=== PATIENT | female | born 1995 | race Caucasian/White ===

== ENCOUNTER 2017-04-14 13:30 | Outpatient (CLI) | payer MEDICAID, SELFPAY ==
[2017-04-14 13:47] VITALS: BMI 21.9
[2017-04-14] MEDS: Lactated Ringers 1,000 ML 999 ML IV (13:50)
[2017-04-14] MEDS: Betamethasone/Betamethasone 30 MG/5 ML Vial 12 MG IM (13:53)
[2017-04-14 14:02] LABS: Bacteria 0 SEEN /hpf (None Seen); Mucous, Urine 0 SEEN /hpf (<or=2+); Red Blood Cells-Urine 0 SEEN /hpf (0-5)
[2017-04-14 14:06] LABS: Absolute Lymphocyte Count 1.35 X10^3/ul (0.83-4.51); Absolute Neutrophil Count 6.3 X10^3/uL (2.0-7.7); Basophil# 0.01 X10^3/uL; Basophil% 0.1 % (0-1); Eosinophil# 0.04 X10^3/uL; Eosinophils% 0.5 % (0-5); Hematocrit 34.6 % (37-47); Hemoglobin 11.1 g/dl (12.0-15.0); Lymphocyte # 1.35 X10^3/ul (4.0); Lymphocyte % 16.1 % (19-41); Mean Corp Hgb Conc 32.1 g/gl (32-36); Mean Corpuscular Hgb 28.2 pg (27.0-32.0); Mean Platelet Vol. 11.3 fl (6.2-12.0); Monocyte# 0.62 X10^3/uL; Monocyte% 7.4 % (0-10); Neutrophil # 6.33 X10^3/uL (2.7-7.7); Neutrophil % 75.8 % (47-70); Platelet Count 187 K/mm3 (150-450); RBC Distribution Width CV 12.7 % (11.6-14.6); RBC Distribution Width SD 41.2 fl (35.1-43.9); Red Blood Count 3.93 M/mm3 (4.2-5.4); White Blood Count 8.4 K/mm3 (4.4-11.0)
[2017-04-14 14:07] LABS: POSITIVE COUNT NO; POSITIVE DIFFERENTIAL NO; POSITIVE MORPHOLOGY NO
[2017-04-14 14:24] LABS: Color, Urine Yellow (Yellow); Glucose, Dipstick Normal (Normal); Ketone-Dipstick Negative (Negative); Leukocyte Esterase-Dipstick 25 /ul (Negative); Nitrite-Dipstick Negative (Negative); Occult Blood-Urine Negative /ul (Negative); Protein-Dipstick Negative (Negative); Urine Bilirubin Dipstick Negative (Negative); Urine Clarity Sl. Cloudy (Clear); Urine Urobilinogen Normal (Normal)
[2017-04-14 14:34] LABS: Squamous Epithelial Cells - UA 0-5 SEEN /hpf (5-10); White Blood Cells 0-5 SEEN /hpf (0-5)
[2017-04-14 14:47] LABS: Group B Strep DNA By PCR POSITIVE (Negative); Probe Check PASS
[2017-04-14] MEDS: Lactated Ringers 1,000 ML 150 ML IV (14:52)
--- NOTE | 2017-04-14 19:09 | PCM.HP.OB ---
History Date of Admission: 04/14/17 Gestational age: 35 History of this : 21-year-old 3 para 1011 female who presents at 35-5/7 weeks gestation with EDC of 05/14/2017 by last menstrual period confirmed by first trimester ultrasound who presents complaining of contractions. She has been rachel since yesterday but they got worse this morning. She arrived to labor and delivery to be evaluated for this. She denies any gross vaginal bleeding or leaking of fluid she has had good movement. She denies any nausea vomiting, fevers, chills, constipation, or diarrhea. She denies any dysuria. Had some increased pelvic pressure. Pertinent Past Medical History: Past medical history significant for mood disorder, ovarian cyst, anemia of Social history patient is currently in the process of getting Surgical history appendectomy Allergies No Known Allergies Allergy (Verified 04/14/17 15:33) Current Medications Lactated Ringer's () 1,000 mls @ 150 mls/hr IV .[id number] ELIAS Last Admin: 04/14/17 14:52 Dose: 150 mls/hr Smoking Status: Former smoker Alcohol: None Drug Use: none Number of Fetus(es): 1 Review of Systems Constitutional: Denies: Chills, Fever Cardiovascular: Denies: Chest Pain Respiratory: Denies: Cough Gastrointestinal: Denies: Constipation, Diarrhea Genitourinary: Denies: Dysuria, Frequency Physical Exam General: Alert, Cooperative, No apparent distress Cardiovascular: Regular rate Lungs: Normal air movement Abdomen: Soft, Non Tender, Non-Distended, Gravid Extremities:: No edema Estimated gestational size: Appropriate for gestational size Presentation: Cephalic Cervix Dilation (cm): 3.5 - soft, mid position Station: -2 Effacement (%): 70 Assessment/Plan 21-year-old 3 para 1 female at 35-5/7 weeks 1. labor. Patient was given betamethasone in anticipation of delivery. Rapid group B strep was done and is positive. Patient is now 4 and 80-2 station. With the cervical change will initiate group B strep prophylaxis at this time. Nan with her I am not making her a full admission for labor until she declares herself in active labor. She is rachel regularly and heart tones are category 1. If she is determined to be in active labor she may have an epidural or nitrous oxide as desired. Estimated weight is less than 4000 g and pelvis clinically adequate to expect vaginal delivery. I did offer patient some Nubain and we have given her IV fluids and she declines the Nubain at this time for pain control. IV hydration has not increased her contraction frequency and she feels like they are getting more intense. We will continue to monitor until she is declared to be in labor or false labor.
--- NOTE | 2017-04-14 20:58 | PCM.PN.BLA ---
Progress Note Patient's contractions of stated regular but not gotten more intense over the past couple of hours. Her cervix remains unchanged. heart tones are category 1. At this point I discussed with her that at 35 weeks unless she declares herself in active labor we would not form any augmentation of labor. Patient is comfortable with this. Will saline lock IV for tonight. May monitor 1 hour every shift and as needed. Second dose of betamethasone tomorrow. Reinitiate penicillin prophylaxis and admit for labor if significant cervical change tonight. Patient agrees with plan
[2017-04-15] MEDS: Sertraline 50 MG Tablet PO (03:51)
[2017-04-15] MEDS: Betamethasone/Betamethasone 30 MG/5 ML Vial 12 MG IM (11:58)
--- NOTE | 2017-04-15 13:30 | PCM.PN.OB ---
Subjective: Contractions less intense. Some blood tinged mucous. Less of the sharp suprapubic pains. No LoF. no n/v/d/c. No dysuria. Comfortable going home - Physical Exam General: Alert, Cooperative, No apparent distress Lungs: Normal air movement Abdomen: Soft, Non Tender, Non-Distended Extremities: No edema Skin: No rashes Comment: cervix 4/75/-2, ballots, mid position, firm Weight: 52.2 kg Body Mass Index (BMI) 21.9 Laboratory Tests Past 24 Hrs 04/14/17 04/14/17 04/14/17 13:50 13:50 13:55 WBC 8.4 RBC 3.93 L Hgb 11.1 L Hct 34.6 L MCV 88.0 MCH 28.2 MCHC 32.1 RDW 12.7 RDW Differential 41.2 Plt Count 187 MPV 11.3 Immature Gran % (Auto) 0.100 Neut % (Auto) 75.8 H Lymph % (Auto) 16.1 L [place] % (Auto) 7.4 Eos % (Auto) 0.5 Baso % (Auto) 0.1 Absolute Neuts (auto) 6.3 Absolute Lymphs (auto) 1.35 Total Counted Not Reportable Urine Color Yellow Urine Clarity Sl. Cloudy Urine pH 8.0 Ur Specific [place] 1.010 Urine Protein Negative Urine Glucose (UA) Normal Urine Ketones Negative Urine Occult Blood Negative Urine Nitrite Negative Urine Bilirubin Negative Urine Urobilinogen Normal Ur Leukocyte Esterase 25 H Urine RBC 0 SEEN Urine WBC 0-5 SEEN Ur Squamous Epith Cells 0-5 SEEN Urine Bacteria 0 SEEN Urine Mucus 0 SEEN Group B Strep DNA Specimen Comment Blood Type O POSITIVE Antibody Screen NEGATIVE 04/14/17 13:55 WBC RBC Hgb Hct MCV MCH MCHC RDW RDW Differential Plt Count MPV Immature Gran % (Auto) Neut % (Auto) Lymph % (Auto) [place] % (Auto) Eos % (Auto) Baso % (Auto) Absolute Neuts (auto) Absolute Lymphs (auto) Total Counted Urine Color Urine Clarity Urine pH Ur Specific [place] Urine Protein Urine Glucose (UA) Urine Ketones Urine Occult Blood Urine Nitrite Urine Bilirubin Urine Urobilinogen Ur Leukocyte Esterase Urine RBC Urine WBC Ur Squamous Epith Cells Urine Bacteria Urine Mucus Group B Strep DNA POSITIVE H Specimen Comment Not Reportable Blood Type Antibody Screen Assessment/Plan FHTs baseline -normal variability- moderate accels- present decels- none reactive- yes, category1 tocos- irreg ctxs a/p 21 YOF @ 35 6/7 weeks w/ threatened ptl s/p betamethasone x 2 d/w her PTL precautions f/u in 2 days as scheduled GBS + will prophylax in labor
--- NOTE | 2017-04-28 15:56 | NURSING ---
LAKE charted on for the purpose of charging
== END 2017-04-15 13:25 | disposition home or self-care (01) ==
LOC: WPOUT 13:42 → WP 13:44
PROVIDERS: Family Provider Family Medicine; PCP Family Medicine; Visit Provider Obstetrics & Gynecology
DX: O47.03 False labor before 37 completed weeks of gestation, third trimester (principal); O99.820 Streptococcus B carrier state complicating pregnancy; O99.343 Other mental disorders complicating pregnancy, third trimester; F39 Unspecified mood [affective] disorder; O34.83 Maternal care for other abnormalities of pelvic organs, third trimester; N83.209 Unspecified ovarian cyst, unspecified side; O99.013 Anemia complicating pregnancy, third trimester; D64.9 Anemia, unspecified; Z3A.35 35 weeks gestation of pregnancy; Z90.89 Acquired absence of other organs; Z87.891 Personal history of nicotine dependence
CPT/HCPCS: 96361 ×7; 96365; 36415; 59025; 59050; 81001; 85025; 86850; 86900; 87653; 96372; 99218; J7120; G0378; J0702

== ENCOUNTER 2017-04-28 09:00 | Outpatient (CLI) | payer MEDICAID, SELFPAY ==
[2017-04-28 09:52] VITALS: BMI 22.5
--- NOTE | 2017-04-28 13:17 | OB.TRI.NOTE ---
History of Present Illness Reason For Visit: SAMANTHA Date of Service: 04/28/17 Gestational age: 37 Home Medications Medication Instructions Recorded Pnv95/Ferrous Fumarate/FA 1 tab PO DAILY 06/30/16 [ Formula Tablet] Sertraline HCl [Zoloft] 50 mg PO DAILY 01/04/17 Allergies No Known Allergies Allergy (Verified 04/14/17 15:33) NST - FHR Rate Baby A Baseline: 150 bpm Variability:: Moderate Accelerations:: 15 x 15 Decelerations:: None NST Reactive:: Yes FHR Category:: Category I Uterine Activity:: irreg ctxs Impression/Plan 21 YOF high risk multigravida false labor
== END 2017-04-28 12:10 | disposition home or self-care (01) ==
LOC: WPOUT 09:17 → WP 09:28
PROVIDERS: Family Provider Family Medicine; PCP Family Medicine; Visit Provider Obstetrics & Gynecology
DX: O09.93 Supervision of high risk pregnancy, unspecified, third trimester (principal); O47.1 False labor at or after 37 completed weeks of gestation; Z3A.37 37 weeks gestation of pregnancy
CPT/HCPCS: 59025; 59050; 99218; G0378

== ENCOUNTER 2017-05-01 20:52 | Inpatient (IN) | payer MEDICAID, SELFPAY ==
[2017-05-01 21:16] VITALS: BMI 22.6
--- NOTE | 2017-05-01 21:22 | PCM.HP.OB ---
History Date of Admission: 05/01/17 Gestational age: 38 History of this : 21-year-old 3 para 1011 female who presents at 38 2/7 weeks gestation with EDC of 05/14/2017 by last menstrual period confirmed by first trimester ultrasound presents complaining of contractions. Retractions began getting intense at 8 PM but they got significantly worse in the car on her way here. She was rushed down from emergency room and found to be completely dilated when she arrived to the floor. She had no gross vaginal bleeding or leaking of fluid at home. She had spontaneous rupture of membranes for moderate amount of fluid upon within 2 minutes of arriving to our floor. Her was complicated today by 3 threatened labor and she did receive a course of betamethasone at 35 weeks. However she is now term. Obstetrical history: one full-term vaginal delivery and 1 spontaneous miscarriage. Past medical history: Anemia of and anxiety and depression, situational stress Past surgical history:appendectomy Family medical history: Noncontributory Allergies No Known Allergies Allergy (Verified 04/14/17 15:33) Current Medications Acetaminophen (Tylenol) 325 - 650 mg PO Q4H PRN PRN PRN Reason: PAIN OR FEVER >100.4F Al Hydroxide/Mg Hydroxide (Mylanta Ii) 15 - 30 ml PO Q4H PRN PRN PRN Reason: INDIGESTION Citric Acid/Sodium Citrate (Bicitra) 30 ml PO UD PRN Lactated Ringer's () 1,000 mls @ 50 mls/hr IV .Q20H ELIAS Nalbuphine HCl (Nubain) 5 - 10 mg IV Q3H PRN PRN PRN Reason: PAIN (4-10/10) Ondansetron HCl (Zofran) 4 mg IV Q8H PRN PRN PRN Reason: NAUSEA Promethazine HCl (Phenergan (Ll)) 6.25 - 12.5 mg IV Q4H PRN PRN; Protocol PRN Reason: IF NAUSEA PERSISTS Sodium Chloride () 5 - 15 ml IV UD [facility] Smoking Status: Former smoker - quit 2014 Alcohol: None Drug Use: none Number of Fetus(es): 1 Review of Systems Constitutional: Denies: Chills, Fever Cardiovascular: Denies: Chest Pain Respiratory: Denies: Shortness of Breath Physical Exam General: Alert, - - very uncomfortable upon arrival to floor, writhing in pain, c/o pressure Cardiovascular: Regular rate Abdomen: Soft, Non-Distended, Gravid, Appropriate for Gestational Age Extremities:: No edema Estimated gestational size: Appropriate for gestational size Presentation: Cephalic Cervix Dilation (cm): 10 Station: 1 Effacement (%): 100 Assessment/Plan 21-year-old 3 para 1 female at 38 weeks gestation with precipitous labor. Patient arrived in active labor and complete. Estimated weight is less than 4500 g and pelvis clinically adequate to expect vaginal delivery. There is not time for an epidural. Patient delivered precipitously and was given IM Pitocin after delivery. No labs were sent as her bleeding was minimal during delivery and after. However if her bleeding picks up at all we will send a type and screen and started an IV.
--- NOTE | 2017-05-01 21:29 | PCM.OB.VAG ---
Vaginal Delivery Maternal Presentation: Active Labor Amniotic Membrane Rupture Type: Spontaneous Amniotic Fluid Description: Clear Final IRENE: 05/14/17 Gestational age: 38 Weeks and 1 Days Date of Procedure: 05/01/17 Pre-Operative Diagnosis: labor Post-Operative Diagnosis: same Surgery/ Procedure Performed: Spontaneous Vaginal Delivery Type of Anesthesia: None Description of Procedure: The patient arrived in active labor and complete. She was transferred to the bed on the next contraction she had spontaneous rupture of membranes for a moderate amount of clear fluid. On the next contraction she felt the urge to push and precipitously delivered. I was present on the unit and so I was present for delivery. A vigorous male infant was delivered [CLEVE] over first-degree perineal laceration. The remainder the infant was delivered with maternal pushing and gentle traction only in less than 15 seconds. The Pitocin infusion was initiated for active management of the third stage. The cord was clamped and cut [after 1 minute]. The infant was attended to by the waiting nursing staff. The placenta was delivered spontaneously and intact. The cervix and vagina were intact. Sponge and needle counts were correct. A vaginal sweep was completed by me. The laceration was not repaired and was hemostatic. Presentation: CLEVE Placental Delivery Description: Spontaneous Placenta Disposition: [facility] Cord Vessel Description: 3 Vessels Cord Entanglement: None Drain: - - none Estimated Blood Loss: 200 Infant A gender: Male Episiotomy Description: None Laceration: 1st degree - perineal Medications given after delivery: - - IM pitocin Complications: None
--- NOTE | 2017-05-01 21:33 | OP.PCM_ITS ---
Vaginal Delivery Maternal Presentation: Active Labor Amniotic Membrane Rupture Type: Spontaneous Amniotic Fluid Description: Clear Final IRENE: 05/14/17 Gestational age: 38 Weeks and 1 Days Date of Procedure: 05/01/17 Pre-Operative Diagnosis: labor Post-Operative Diagnosis: same Surgery/ Procedure Performed: Spontaneous Vaginal Delivery Type of Anesthesia: None Description of Procedure: The patient arrived in active labor and complete. She was transferred to the bed on the next contraction she had spontaneous rupture of membranes for a moderate amount of clear fluid. On the next contraction she felt the urge to push and precipitously delivered. I was present on the unit and so I was present for delivery. A vigorous male infant was delivered [CLEVE] over first- degree perineal laceration. The remainder the was delivered with maternal pushing and gentle traction only in less than 15 seconds. The Pitocin infusion was initiated for active management of the third stage. The cord was clamped and cut [after 1 minute]. The infant was attended to by the waiting nursing staff. The placenta was delivered spontaneously and intact. The cervix and vagina were intact. Sponge and needle counts were correct. A vaginal sweep was completed by me. The laceration was not repaired and was hemostatic. Presentation: CLEVE Placental Delivery Description: Spontaneous Placenta Disposition: [facility] Cord Vessel Description: 3 Vessels Cord Entanglement: None Drain: - - none Estimated Blood Loss: 200 Infant A gender: Male Episiotomy Description: None Laceration: 1st degree - perineal Medications given after delivery: - - IM pitocin Complications: None
[2017-05-02] MEDS: Etonogestrel 68 MG IMPLANT SQ (00:52)
--- NOTE | 2017-05-02 00:52 | PCM.PN.BLA ---
Progress Note Procedure report: Response and alternatives to insertion of Nexplanon were discussed with the patient, her questions were answered to her satisfaction, and she desired to proceed. A timeout was performed at 00:51. the patient's right arm was prepped with ChloraPrep. Percent lidocaine was used to infiltrate her prior scar in the lower portion of her right inferior inner arm. Nexplanon was placed under the skin in the usual sterile fashion without complication. Some pressure was held on the insertion site. The Nexplanon was palpable under the skin. Steri-Strips were placed over the insertion site and the site was wrapped with Coban. Patient tolerated the procedure well.
[2017-05-02 04:30] VITALS: BP 118/68; PULSE 82; RESP 16; TEMP 36.8
[2017-05-02 08:17] VITALS: BP 109/64; PULSE 82; RESP 16; TEMP 36.8; O2SAT 99
--- NOTE | 2017-05-02 09:35 | PCM.PN.OB ---
Subjective: No complaints - Physical Exam General: Alert, Oriented x3 Abdomen: Soft, Non Tender, Non-Distended - ff mid & below umb Extremities: No Calf Tenderness Vital Signs Temp Pulse Resp BP Pulse Ox 98.2 F 82 16 109/64 99 05/02/17 08:17 18 08:17 05/02/17 08:17 05/02/17 08:17 05/02/17 08:17 Oxygen Delivery Method Room Air Weight: 116 lb Body Mass Index (BMI) 22.6 Assessment/Plan PPD#1 Routine care
--- NOTE | 2017-05-02 09:38 | PCM.DCVAG ---
Discharge Diet: No Restrictions Discharge Activity: May Drive, May Shower May resume sexual activity in: 6 weeks Weight Bearing Status: Weight bearing as tolerated Additional Instructions: If you experience any of the following, contact your healthcare provider. Bleeding that soaks a pad every hour for 2 hours Fever 100.4 or higher Unrelieved incision or abdominal pain Swelling, redness, discharge or bleeding from your incision or episiotomy site Your incision begins to separate Problems urinating (including inability to urinate or burning while urinating). Visual changes Severe headache Flu-like symptoms Pain or redness in one of both of your breasts Pain, warmth, tenderness or swelling in your legs, especially the calf area Frequent nausea and vomiting Symptoms of depression or anxiety If you experience any of the following, call 911 or go to the nearest Emergency Room. Chest pain Problems breathing Seizure activity Partial or complete paralysis of a body part, slurred speech, weakness or drooping of the face, or a sudden inability to walk or hold your balance Allergies/Adverse Reactions: Allergies No Known Allergies Allergy (Verified 04/14/17 15:33) Medications to take at Discharge Pnv95/Ferrous Fumarate/FA [ Formula Tablet] 1 tab PO DAILY 06/30/16 Naproxen [Naprosyn] 250 - 500 mg PO Q8H PRN PRN #40 tab 05/02/17 Sertraline HCl [Zoloft] 50 mg PO DAILY tablet 05/02/17 The following prescriptions were given: Naproxen [Naprosyn] 250 - 500 mg PO Q8H PRN PRN #40 tab PRN Reason: Mild Pain (-06/06) Primary Care Physician: Yoni Le MD [Primary Care Provider] -
--- NOTE | 2017-05-02 09:39 | DCINST_ITS ---
Discharge Diet: No Restrictions Discharge Activity: May Drive, May Shower May resume sexual activity in: 6 weeks Weight Bearing Status: Weight bearing as tolerated Additional Instructions: If you experience any of the following, contact your healthcare provider. * Bleeding that soaks a pad every hour for 2 hours * Fever 100.4 or higher * Unrelieved incision or abdominal pain * Swelling, redness, discharge or bleeding from your incision or episiotomy site * Your incision begins to separate * Problems urinating (including inability to urinate or burning while urinating) . * Visual changes * Severe headache * Flu-like symptoms * Pain or redness in one of both of your breasts * Pain, warmth, tenderness or swelling in your legs, especially the calf area * Frequent nausea and vomiting * Symptoms of depression or anxiety If you experience any of the following, call 911 or go to the nearest Emergency Room. * Chest pain * Problems breathing * Seizure activity * Partial or complete paralysis of a body part, slurred speech, weakness or drooping of the face, or a sudden inability to walk or hold your balance Allergies/Adverse Reactions: Allergies No Known Allergies Allergy (Verified 04/14/17 15:33) Medications to take at Discharge Pnv95/Ferrous Fumarate/FA [ Formula Tablet] 1 tab PO DAILY 06/30/16 Naproxen [Naprosyn] 250 - 500 mg PO Q8H PRN PRN #40 tab 05/02/17 Sertraline HCl [Zoloft] 50 mg PO DAILY tablet 05/02/17 The following prescriptions were given: Naproxen [Naprosyn] 250 - 500 mg PO Q8H PRN PRN #40 tab PRN Reason: Mild Pain (-06/06) Primary Care Physician: Yoni Le MD [Primary Care Provider] -
[2017-05-02 12:00] VITALS: BP 108/75; PULSE 71; RESP 18; TEMP 36; O2SAT 98
[2017-05-02 16:39] VITALS: BP 110/73; PULSE 80; RESP 18; TEMP 36.9; O2SAT 99
--- NOTE | 2017-05-02 16:56 | CASEMGMT ---
Addendum entered by Natty Orozco 05/02/17 17:57: Spoke with Letty, on-order caller for [facility], who stated she had found no record of previous contact/involvement with this family. Original Note: Addendum entered by Natty Orozco 05/02/17 17:20: Discussed with nursing concern that pt's visited the baby while intoxicated last night. Call placed to [facility]; spoke with on-order caller, Letty, to confirm no [facility] involvement. Awaiting return call from Letty. Original Note: Referral received from nursing requesting social work speak with pt re: custody of her elder child, social concerns r/t ongoing divorce proceedings. Reviewed record prior to meeting with pt. Introduced self and role and pt voiced understanding that a referral had been made and why. She explained that she and her , Maury, have a 2yr-old dgtr, Ileana Laura. Pt and her are currently legally and were pursuing divorce; he had established a relationship with another woman in February, following their separation, and they had had court hearings to formalize their separation and agree on custody of Ileana. Per the pt, a twist maker (Lorene Brandt) was assigned and pt was granted primary custody of Ileana with Maury having visitation on Tuesdays and from 4p-7p and every other weekend from 12p-6p. Huber and Ileana have been living in a home with four other adults including her mother, her mother's boyfriend, her mother's ex-, and her mother's ex-'s current . Pt reported that she continues to view her mother's ex- as her stepfather and considers his current her stepmother, describing her as very supportive. Pt denied having had any involvement with [facility]. She mentioned that the court has ordered that Maury not consume alcohol immediately prior to or during his visits with Ileana. Last night, she said, she made several attempts to contact Maury as she came to the hospital in labor. She said she called, then texted, then called him again; on the final call Maury's current girlfriend answered the phone and told her that Maury was trashed and at his father's house. She went on to say that Maury ultimately had a friend drive him to the hospital at midnight to see the baby as he did not feel he was sober enough to drive. Pt said that Maury has had trouble with his drinking in the past, but has gotten help and does not drink very often at this point. Pt said that last night the two of them discussed their relationship and are going to attempt to reconcile and raise their children together. However, at this point pt's plan remains to return to home with her mother, her mother's boyfriend, her mother's former , and the former 's current . Pt reported that she has an infant car seat, bassinet, diapering supplies, and clothing at home. She is at this time. She said she has been studying for her GED and will use her tax refund to pay for the exam. Her sister is employed at [employer] and will attempt to help pt to find work there, as well, once she has obtained her GED. Pt reported a history of depression and said her Zoloft has been prescribed by her nurse practitioner, Lizzy Feliz, at [facility]. Pt's eye contact was appropriate and consistent and she was appropriately attentive to her . Provided pt with written and verbal information re: PPD, HMG, safe sleep, local resources for mothers/families. Pt voiced understanding of given resources and denied any additional needs/concerns.
[2017-05-02 20:00] VITALS: BP 108/64; PULSE 82; RESP 18; TEMP 37.2; O2SAT 99
[2017-05-02] MEDS: Sertraline 50 MG Tablet PO (20:31)
[2017-05-02] MEDS: Naproxen 250 MG Tablet PO (23:11)
[2017-05-03 02:00] VITALS: BP 108/63; PULSE 74; RESP 18; TEMP 36.6; O2SAT 97
[2017-05-03 07:34] VITALS: BP 118/70; PULSE 68; RESP 16; TEMP 36.6; O2SAT 97
--- NOTE | 2017-05-03 09:39 | PCM.PN.OB ---
Subjective: No complaints - Physical Exam General: Alert, Oriented x3 Abdomen: Soft - ff mid & below umb, Non Tender, Non-Distended Extremities: No Calf Tenderness Vital Signs Temp Pulse Resp BP Pulse Ox 97.8 F 68 16 118/70 97 05/03/17 07:34 05/03/17 07:34 05/03/17 07:34 05/03/17 07:34 05/03/17 07:34 Oxygen Delivery Method Room Air Weight: 116 lb Body Mass Index (BMI) 22.6 Assessment/Plan PPD#2 D/c home
[2017-05-03 13:13] VITALS: BP 99/50; PULSE 77; TEMP 36.6
--- NOTE | 2017-05-03 15:35 | NURSING ---
Mom d/c done at 1535, baby to wait until 2049 to be d/c'd after 48 hrs are up.
== END 2017-05-03 15:35 | disposition home or self-care (01) | DRG 373 ==
PROVIDERS: Admitting Provider Obstetrics & Gynecology; Family Provider Family Medicine; PCP Family Medicine; Visit Provider Obstetrics & Gynecology
DX: O62.3 Precipitate labor (principal); O47.1 False labor at or after 37 completed weeks of gestation; O99.02 Anemia complicating childbirth; O70.0 First degree perineal laceration during delivery; O09.93 Supervision of high risk pregnancy, unspecified, third trimester; Z3A.37 37 weeks gestation of pregnancy; Z3A.38 38 weeks gestation of pregnancy; Z37.0 Single live birth; Z87.891 Personal history of nicotine dependence; O99.344 Other mental disorders complicating childbirth; F41.8 Other specified anxiety disorders; Z79.899 Other long term (current) drug therapy
CPT/HCPCS: 59025; 59050; 99218; G0378

== ENCOUNTER 2017-07-23 14:00 | Emergency (ER) | payer MEDICAID, SELFPAY ==
[2017-07-23 14:01] VITALS: BP 121/68; PULSE 103; RESP 16; TEMP 37.4; BMI 20.2
--- NOTE | 2017-07-23 14:42 | ED.VISSUMM ---
- ER Visit Summary Date of Service: 07/23/17 Chief Complaint: Randolph tooth pain History of Present Illness: The patient is a 21 F who presents with right-sided dental pain. Patient states that she went to a dentist today and was told that she has a wisdom tooth that is growing sideways. She was given a prescription to go see an oral surgeon as well as a prescription for clindamycin. Patient states that after the dentist appointment she is unable to fully open her mouth and the dentist told her to come to the emergency room and get a dose of IV clindamycin so that her swelling will go down so that she can take the oral clindamycin. Patient states that she was able to take her Zoloft this morning. Patient states that family asked if she could have liquid clindamycin and to call the dentist. Physical Examination: Afebrile vital signs are stable Gen: Well-nourished well-developed Head: Normocephalic atraumatic Eyes: Perrl EOMI ENT: TMs clear no rhinorrhea moist mucous membranes I do not see any focal abscess. Minimal swelling if at all. Neck: Supple no lymphadenopathy no JVD nontender CVS: Regular rate rhythm no murmurs normal S1-S2 Respiratory: No distress clear to auscultation bilaterally chest nontender Abdomen: Soft nontender nondistended normal bowel sounds no masses Back: Nontender Extremity: Nontender no edema Skin: Normal color no rash Neuro: alert orientated ?3 CN II-XII intact normal strength sensation reflexes gait cerebellar Psych: Presentation is out of proportion to the exam Emergency Department Course and Treatment: Establishing an IV and given IV clindamycin I do not believe is warranted. I do not believe a simple one-time dose of clindamycin will result in diminished pain that the patient can take her next dose. I will write for liquid clindamycin. I will give her a dose of Toradol. Impression: 1. Impacted wisdom tooth This note was generated with [employer] dictation software. It may contain incorrect words, spelling, and punctuation that were not noted in review of the chart prior to signing ED Disposition - Plan for ED Patient: Disposition: Home or Assisted Living Chief Complaint: Dental Instructions: Understanding Impacted Randolph Teeth Prescriptions: Clindamycin Palm Suspension [Cleocin Suspension] 300 mg GT 4X/DAY #800 ml Additional Instructions: Follow-up with your dentist as directed.
[2017-07-23] MEDS: Ketorolac 60 MG/2 ML Vial IM (15:10)
== END 2017-07-23 15:35 | disposition home or self-care (01) ==
PROVIDERS: Emergency Provider Emergency Medicine; Family Provider Family Medicine; PCP Family Medicine
DX: K01.1 Impacted teeth (principal); K08.89 Other specified disorders of teeth and supporting structures; F32.9 Major depressive disorder, single episode, unspecified; Z79.899 Other long term (current) drug therapy
CPT/HCPCS: 96372; 99282

== ENCOUNTER 2017-09-20 10:21 | Emergency (ER) | payer MEDICAID, SELFPAY ==
[2017-09-20 10:22] VITALS: BP 101/69; PULSE 116; RESP 17; TEMP 37.4; O2SAT 96; BMI 19.9
--- NOTE | 2017-09-20 10:36 | ED.DCSUM_ITS ---
- ER Visit Summary Date of Service: 09/20/17 Chief Complaint: [] Certain for bug bites to lower extremities itchy lesions History of Present Illness: The patient is a 21 F [] reports that yesterday she was outdoors and she noticed what she describes a black flying bug that was on her legs it caused bites flew away and now she is complaining of 2 or 3 circular lesions that are quite itchy to her lower extremities she presents without complaint. She has no nausea vomiting or fever no history of MRSA, she has a small child with her the child was with her but was not bitten by this insect. She is quite sure that whatever this black insect was was not to be she she has no history of skin conditions she reports the nurses she was slightly dizzy because of all the above but she had no nausea vomiting or fever she is eating and drinking well she is in no distress her chief complaint is that these lesions are quite pruritic Physical Examination: [] Which was 99 she is awake and alert her mucous membranes are unremarkable her lungs are clear heart tones are normal the abdomen soft nontender the lower extremities there are 2 or 3 circular lesions that could certainly represent some type of an insect bite to the lower extremities they are soft minimally raised they could represent hives there is no petechia purpura skin breakdown is no signs of abscess these are not fluctuant she denies any history of MRSA or skin disease or infection neurologically she is awake alert walking around the room without any difficulty Test Results: [] Emergency Department Course and Treatment: [] Chief complaint is these bug bites she assures me these are bug bites she is clearly saw the bug she did not take anything for the itching at this time she will be prescribed Zyrtec hydrocortisone 1% cream rest plenty of fluids she will follow with her family doctors return for change in symptoms Treatment Plan: [] Disposition: [] Home stable Impression: [] Pruritic lesions to lower extremities reportedly related to bug bites This note was generated with [employer] dictation software. It may contain incorrect words, spelling, and punctuation that were not noted in review of the chart prior to signing ED Disposition - Plan for ED Patient: Chief Complaint: Dizziness Referrals: oYni Le MD [Primary Care Provider] -
--- NOTE | 2017-09-20 10:36 | ED.DEP ---
ED Disposition - Plan for ED Patient: Chief Complaint: Dizziness Instructions: ED Erythema, ED Bite Chigger Prescriptions: Cetirizine HCl [Zyrtec] 10 mg PO DAILY #14 tab Hydrocortisone 1% Crm [Hytone] 1 applic TOPICAL DAILY 10 Days #1 tube Referrals: Yoni Le MD [Primary Care Provider] -
[2017-09-20 10:59] VITALS: RESP 14
== END 2017-09-20 11:00 | disposition home or self-care (01) ==
PROVIDERS: Emergency Provider Emergency Medicine; Family Provider Family Medicine; PCP Family Medicine
DX: L29.9 Pruritus, unspecified (principal); S80.862A Insect bite (nonvenomous), left lower leg, initial encounter; S80.861A Insect bite (nonvenomous), right lower leg, initial encounter; W57.XXXA Bitten or stung by nonvenomous insect and other nonvenomous arthropods, initial encounter; Y93.9 Activity, unspecified; Y92.9 Unspecified place or not applicable
CPT/HCPCS: 99282

== ENCOUNTER 2018-10-15 20:07 | Emergency (ER) | payer BC, MEDICAID, SELFPAY ==
[2018-10-15 20:07] VITALS: BMI 22.6
[2018-10-15 20:08] VITALS: BP 110/68; PULSE 95; RESP 16; TEMP 36.6; O2SAT 98; BMI 17.6
--- NOTE | 2018-10-15 21:13 | ED.DCSUM_ITS ---
- ER Visit Summary Date of Service: 10/15/18 Chief Complaint: Laceration History of Present Illness: The patient is a 22 F with a laceration to her left thigh. This was prior to arrival. She cut it on the car panel. Physical Examination: 6 cm full-thickness linear laceration to the anterior left thigh. Neurovascular intact distally. No gross contamination. Test Results: None indicated Emergency Department Course and Treatment: Wound was anesthetized, irrigated, explored. No foreign bodies. Wound was closed with simple interrupted sutures. Wound care instructions given. Infection precautions given. Follow-up with primary care in 10 to 14 days for removal. Return right away for any new or worsening issues. Tetanus updated. Treatment Plan: As above Disposition: Discharge Impression: 1. Laceration left thigh 6 cm This note was generated with [employer] dictation software. It may contain incorrect words, spelling, and punctuation that were not noted in review of the chart prior to signing ED Disposition - Plan for ED Patient: Referrals: Yoni Le MD [Primary Care Provider] -
--- NOTE | 2018-10-15 21:15 | ED.DEP ---
ED Disposition - Plan for ED Patient: Instructions: LACERATION, All Referrals: Yoni Le MD [Primary Care Provider] - 10-14 Days suture removal
[2018-10-15 21:16] VITALS: RESP 16
[2018-10-15 22:15] VITALS: BP 105/87; PULSE 89; RESP 16; O2SAT 100
== END 2018-10-15 22:16 | disposition home or self-care (01) ==
LOC: ED 21:40
PROVIDERS: Emergency Provider Emergency Medicine; Family Provider Family Medicine; PCP Family Medicine
DX: S71.112A Laceration without foreign body, left thigh, initial encounter (principal); W26.8XXA Contact with other sharp object(s), not elsewhere classified, initial encounter; Y93.9 Activity, unspecified; Y92.9 Unspecified place or not applicable; F32.9 Major depressive disorder, single episode, unspecified; Z79.899 Other long term (current) drug therapy; Z72.0 Tobacco use
CPT/HCPCS: 12002; 90715; 99283

== ENCOUNTER 2019-03-14 07:05 | Emergency (ER) | payer MEDICAID, SELFPAY ==
--- NOTE | 2019-03-14 07:06 | NURSING ---
NO OLD EKGS
[2019-03-14 07:08] VITALS: BP 115/60; PULSE 93; RESP 16; TEMP 36.7; O2SAT 93; BMI 20.6
[2019-03-14] MEDS: morphine 8 MG/ML Syringe 6 MG SC (07:36)
[2019-03-14] MEDS: Ondansetron ODT 4 MG Tablet PO (07:36)
--- NOTE | 2019-03-14 07:36 | ED.DCSUM_ITS ---
History of Present Illness Chief Complaint: Chest Pain Informant: Patient Onset: Today Maximum Severity: Mild Narrative: Left-sided chest pain while stretching Patient indicates while at work just prior to her work activity she began stretching her body which she basically states she put her hands overhead when she turned her torso left and right side to side as she did show she experienced a sharp pain to the left chest at the level of the left breast the pain persisted then she started to execute some of her work activities which included more type of movement but nothing heavy and had more pain the pain did not go away, paramedics were called and she was brought in. She has no history of VT PE DVT or pneumothorax she has had these pains in the past she denies being and her review of systems otherwise negative she points to an area superior to her left nipple as the focus of pain Past Medical History - Allergies and Home Meds Allergies/Adverse Reactions: Allergies No Known Allergies Allergy (Verified 03/14/19 07:19) Primary Care Physician: Yoni Le MD [Primary Care Provider] - Past Medical History: - - Unremarkable except as above Smoking Status: Former smoker Review of Systems General: Denies: Chills, Fever, Sweats Eyes: Denies: Visual changes - bilaterally, Diplopia ENT: Denies: Rhinorrhea, Sore throat Cardiovascular: Reports: Chest pain. Denies: Palpitations Respiratory: Denies: Dyspnea, Cough, Dyspnea on exertion Gastrointestinal: Denies: Abdominal pain, Nausea, Vomiting, Diarrhea, Melena, Hematochezia Genitourinary: Denies: Dysuria, Hematuria, Frequency Musculoskeletal: Denies: Back pain, Extremity Pain Skin: Denies: Rash, Wounds Neurological: Denies: Headache, Weakness, Numbness Physical Exam Vital Signs/Narrative: Vital Signs Temp Pulse Resp BP Pulse Ox 03/14/19 07:08 98.1 F 93 16 115/60 93 General: Well nourished, Well developed, No Acute Distress Head: Normocephalic, Atraumatic Eyes: Perrl, EOMI ENT: Moist mucous membranes, No rhinorrhea Neck: Supple, Nontender Cardiovascular: Regular rate, Regular rhythm, No murmurs Respiratory: No distress, CTA bilaterally, - - She has tenderness to the left chest adjacent to her left breast no crepitance subcu air Abdomen: Soft, Nontender, Nondistended, Normal bowel sounds Back: Nontender, Normal Inspection Extremities: Nontender, No edema Skin: Normal color, No rash Neurological: Alert, Oriented x3, Cranial nerves II-XII grossly intact, Normal Strength, Normal Sensation Psychological: Normal affect, Normal Mood Diagnostic/Tx/Re-eval - Medical Decision Making Patient's EKG shows a sinus rhythm rate about some nothing acute her physical exam and vital signs are unremarkable she stays perfectly still does not move the pain is improved, differentials extensive chest x-ray pain management The patient's chest x-ray per radiology is unremarkable on reevaluation her vital signs are normal she is feeling better explained the differential is extensive but given her mechanism the movements as above this is likely musculoskeletal, she was treated with morphine and Toradol she is feeling much better she is comfortable with discharge and follow-up with her outpatient pr oviders Naprosyn for pain return for change in symptoms she will avoid the activity Home stable Impression final sharp left-sided chest pain after physical activity ED Disposition - Plan for ED Patient: Diagnosis: Chest pain Instructions: Chest Wall Strain Prescriptions: Naproxen [Naprosyn] 500 mg PO BID PRN #20 tab Prescription Printed Referrals: Yoni Le MD [Primary Care Provider] -
--- NOTE | 2019-03-14 07:36 | EKG12_ITS ---
Test Reason : CP Blood Pressure : / mmHG Vent. Rate : 090 BPM Atrial Rate : 090 BPM P-R Int : 136 ms QRS Dur : 076 ms QT Int : 332 ms P-R-T Axes : 076 085 051 degrees QTc Int : 406 ms Normal sinus rhythm Normal ECG Confirmed by ELIZA BAKER, LALY ([id number]), website/blog editor CHONG BRISENO ([id number]) on 03/16/2019 11:53:09 AM Referred By: SHEELA Confirmed By:LALY KAY MD
--- NOTE | 2019-03-14 08:01 | RAD_ITS ---
STUDY: X-RAY CHEST REASON FOR EXAM: Female, 23 years old. Chest pain. Shortness of breath. TECHNIQUE: AP and lateral views of the chest. COMPARISON: None. FINDINGS: EKG electrodes are seen. The lungs are clear and expanded. There is no demonstrated pleural abnormality. Normal size heart. Normal mediastinum and gregorio. Normal visualized pulmonary arteries. Normal visualized aortic arch and descending thoracic aorta. Normal visualized thoracic spine. Normal visualized ribs, clavicles, and shoulders. There is no demonstrated abnormality of the visualized soft tissue structures of the upper abdomen. RAD/Chest PA and Lateral IMPRESSION: Normal x-ray examination of the chest. Electronically Signed: Osvaldo Hess, at 8:46 EST , Service support ,
[2019-03-14 08:02] VITALS: BP 111/72; PULSE 93; RESP 18; O2SAT 95
[2019-03-14 09:00] VITALS: BP 103/69; PULSE 84; RESP 16; O2SAT 96
[2019-03-14] MEDS: Ketorolac 30 MG/ML Syringe IV (09:43)
== END 2019-03-14 10:12 | disposition home or self-care (01) ==
LOC: ED 07:29
PROVIDERS: Emergency Provider Emergency Medicine; Family Provider Family Medicine; PCP Family Medicine
DX: R07.9 Chest pain, unspecified (principal); Z79.899 Other long term (current) drug therapy; Z87.891 Personal history of nicotine dependence
CPT/HCPCS: 71046; 93005; 96372; 96374; 99284; A4216

== ENCOUNTER 2019-10-12 13:27 | Emergency (ER) | payer OTHER, SELFPAY ==
[2019-10-12 13:28] VITALS: BP 100/60; PULSE 61; RESP 18; TEMP 36.8; O2SAT 98; BMI 18.1
--- NOTE | 2019-10-12 14:05 | ED.DCSUM_ITS ---
History of Present Illness Chief Complaint: Lower Extremity Injury Detail of Chief Complaint: Right hip pain Informant: Patient Onset: Today Current Severity: Moderate Maximum Severity: Moderate Narrative: Patient presents secondary to right hip pain. She states she has had a bad hip for approximate 11 years. She describes it as a snapping hip. She states the muscle will roll and cause a snapping sensation. She can usually walk it off and does not think much of it. Today she squatted down at work to pick something up and felt that popping sensation. After an hour the pain had inten sified. She denies paresthesias or muscle weakness. She has not yet taken anything for pain. - Past Medical History (1) Anxiety and depression Status: Chronic Past Medical History - Allergies and Home Meds Allergies/Adverse Reactions: Allergies No Known Allergies Allergy (Verified 03/14/19 07:19) Primary Care Physician: Yoni Le MD [Primary Care Provider] - Prior records reviewed: Yes Smoking Status: Never smoker Review of Systems General: Denies: Chills, Fever Eyes: Denies: Visual changes - bilaterally ENT: Denies: Bilateral ear pain Cardiovascular: Denies: Chest pain Respiratory: Denies: Dyspnea, Cough Gastrointestinal: Denies: Abdominal pain, Nausea, Vomiting, Diarrhea Genitourinary: Denies: Dysuria Musculoskeletal: Reports: Extremity Pain Skin: Denies: Rash Neurological: Denies: Headache, Parasthesia Hematologic: Denies: Easy bruising, Easy bleeding Allergy: Denies: Uticaria Physical Exam Vital Signs/Narrative: Vital Signs Temp Pulse Resp BP Pulse Ox 10/12/19 13:28 98.2 F 61 18 100/60 98 Inital Vital Signs reviewed: Yes General: Well nourished, Well developed Head: Normocephalic ENT: Moist mucous membranes Neck: Supple Cardiovascular: Regular rate, Regular rhythm Respiratory: No distress, CTA bilaterally Abdomen: Soft, Nontender Extremities: - - Tenderness of the greater trochanter of the right hip. Full range of motion. No pain at the knee or ankle. Strong distal pulses and normal sensation throughout. Skin: Normal color Neurological: Alert, Oriented x3, Normal Strength, Normal Sensation Psychological: Normal affect Diagnostic/Tx/Re-eval Impressions Hip/Pelvis X-Ray 10/12/19 15:38 IMPRESSION: Normal x-ray examination of the pelvis and hip. Electronically Signed: Osvaldo Hess, at 15:51 EDT , Service support , 10/12/19 15:38 HIP, UNI W/ Pelvis 2-3 Views [RAD] Stat Laboratory Results 10/12/19 15:00 Urine Test Negative - Medical Decision Making Patient was given Tylenol here for pain. Test results are discussed with her. test is negative and x-ray is unremarkable. She is given work restrictions [facility] She will be given a presc ription for naproxen. ED Disposition - Plan for ED Patient: Disposition: Home or Assisted Living Diagnosis: Hip sprain Instructions: ED Sprain Hip Prescriptions: Naproxen [Naprosyn] 500 mg PO BID PRN PRN #20 tab PRN Reason: Pain Score 4-10/10 Transmission Status: Pending to [facility]/pharmacy #[id number] Referrals: [facility] [GROUP OF PHYSICIANS] - 2 Days
[2019-10-12] MEDS: Acetaminophen 325 MG Tablet 650 MG PO (14:52)
[2019-10-12 15:20] LABS: Internal QC Validated? YES +Cl - CLEAR BKGD; Pregnancy, Urine Negative Negative
--- NOTE | 2019-10-12 15:38 | RAD_ITS ---
STUDY: X-RAY - PELVIS AND RIGHT HIP REASON FOR EXAM: Female, 23 years old. RIGHT SIDE HIP PAIN WHILE WORKING TECHNIQUE: 3 views of the pelvis and hip. COMPARISON: None. FINDINGS: Moderate amount of fecal material is seen in the colon. IUD is seen within the pelvis. Normal bilateral iliac wings, sacroiliac joints and visualized sacrum. Normal bilateral superior and inferior pubic rami. Normal pubic symphysis. Normal bilateral ischial tuberosities. Normal visualized femoral head. Normal acetabulum. Normal hip joint. RAD/HIP, UNI W/ Pelvis 2-3 Views IMPRESSION: Normal x-ray examination of the pelvis and hip. Electronically Signed: Osvaldo Hess, at 15:51 EDT , Service support ,
== END 2019-10-12 16:08 | disposition home or self-care (01) ==
PROVIDERS: Emergency Provider Emergency Medicine; PCP Family Medicine
DX: S73.101A Unspecified sprain of right hip, initial encounter (principal); X58.XXXA Exposure to other specified factors, initial encounter; Y93.9 Activity, unspecified; Y92.9 Unspecified place or not applicable; Y99.9 Unspecified external cause status
CPT/HCPCS: 73502; 81025; 99283

== ENCOUNTER → 2019-10-17 16:13 | Outpatient (CLI) | payer SELFPAY ==
[2019-10-17 16:09] VITALS: BMI 18.1
--- NOTE | 2019-10-17 16:14 | RAD_ITS ---
STUDY: X-RAY - ORBITS REASON FOR EXAM: Female, 23 years old. 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 COMPARISON: None. FINDINGS: Normal bilateral orbits without a metallic orbital foreign body. Normal visualized facial bones. Normal paranasal sinuses. The soft tissue structures are unremarkable. Patient has metallic piercing in the tongue RAD/Orbits for Foreign Body IMPRESSION: No demonstrated metallic orbital foreign body within the orbits. The patient is cleared for an MRI examination. Metallic piercing in the tongue Electronically Signed: Chepe Bravo MD at 9:08 EDT , Service support ,
== END ==
LOC: MTRAD 16:14
PROVIDERS: PCP Family Medicine; Referring Provider Physician Assistant Surgical; Visit Provider Physician Assistant Surgical
DX: S73.101A Unspecified sprain of right hip, initial encounter (principal); X58.XXXA Exposure to other specified factors, initial encounter; Y93.9 Activity, unspecified; Y92.9 Unspecified place or not applicable; Y99.9 Unspecified external cause status
CPT/HCPCS: 70030

== ENCOUNTER → 2020-06-29 14:38 | Outpatient (CLI) | payer MEDICAID, SELFPAY ==
[2019-10-17 16:09] VITALS: BMI 18.1
== END ==
PROVIDERS: PCP Family Medicine; Referring Provider Otolaryngology; Visit Provider Otolaryngology
DX: Z11.59 Encounter for screening for other viral diseases (principal)
CPT/HCPCS: 87635; C9803; U0002

== ENCOUNTER → 2020-07-03 | Outpatient (CLI) | payer MEDICAID, SELFPAY ==
[2019-10-17 16:09] VITALS: BMI 18.1
--- NOTE | 2020-07-03 09:25 | TONS_PTH ---
PATIENT: ABISAI CASAS LOC: [facility] #:[id number] AGE/SX: 24/F ROOM: RE07/03/[address]: Dr. Boy Henderson MD : 1995 BED: DIS: 07/03/2020 SPEC #: [id number] RECD: 07/03/20 15:12 STATUS: JOSE RAMON MCDONOUGH #: [id number] NICHOLAS: 07/03/20 09:[address]: Boy Henderson DEPT: SURGICAL PATHOLOGY RECD BY: Yesenai Garibay ENTERED: 07/04/20 08:38 SP TYPE: TONSILS OTHR DR: Dr. Yoni Le MD [facility] Tissues: Tonsil, NOS Procedures: Surgery Specimen Level III HEADER OPERATION: Tonsillectomy PRE-OP DIAGNOSIS: Chronic tonsillitis TISSUE SUBMITTED: Tonsils (right pinned) MICROSCOPIC DIAGNOSIS Bilateral tonsils, tonsillectomy: Reactive lymphoid hyperplasia, consistent with chronic tonsillitis. Focal actinomyces colonization and superficial acute inflammation. LEE:page 07/05/2020 MICROSCOPIC DESCRIPTION Slides are reviewed. GROSS DESCRIPTION Received is one container labeled with the patient's name and designated tonsils - pin/tie on right are two tonsils that in aggregate weigh 5.2 gm. The right tonsil has a pin-tie on it and measures 2.5 x 1.5 x 1.2 cm. The left tonsil measures 2.5 x 1.5 x 1.2 cm. Both tonsils are similar in appearance. The external surfaces are pink-toro, smooth, glistening and somewhat lobulated. Focally they are hemorrhagic, granular and bear cautery artifact. Serial cross sections through the tonsils reveal normal tonsillar architecture. Sections are submitted in two cassettes as follows: 1 - right tonsil, 2 - left tonsil. / LEE:page 07/04/20 TC:3 CPT: 69961 x2
== END | disposition home or self-care (01) ==
LOC: LABSPEC 15:34
PROVIDERS: PCP Family Medicine; Visit Provider Otolaryngology
DX: J35.01 Chronic tonsillitis (principal)
CPT/HCPCS: 88304

== ENCOUNTER 2020-07-08 12:28 | Emergency (ER) | payer MEDICAID, SELFPAY ==
[2019-10-17 16:09] VITALS: BMI 18.1
[2020-07-08 12:29] VITALS: BP 101/96; PULSE 90; RESP 16; TEMP 36.5; O2SAT 96; BMI 18.3
--- NOTE | 2020-07-08 12:47 | ED.VIS.GEN ---
History of Present Illness Chief Complaint: Sore Throat Informant: Patient Narrative: 24-year-old female status post tonsillectomy postop day #5 presenting for difficulty swallowing and holding on fluids. She states she is given Percocet for home however she does not have any antiemetics. She states he has trouble swallowing the Percocet pills and then when she does take it it makes her go to sleep. It does give her nausea as well. Patient states he called Dr. Aragon's office today and I told her to go to the ER to get hydrated and to get some more pain medication. 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 Patient denies any hematemesis. Patient has no epigastric pain. She is not had fever, chills. She denies significant medical history. - Past Medical History (1) Anxiety and depression Status: Chronic Past Medical History - Allergies and Home Meds Allergies/Adverse Reactions: Allergies metronidazole [From Flagyl] Allergy (Verified 07/08/20 12:32) Vomiting Primary Care Physician: Yoni Le MD [Primary Care Provider] - Prior records reviewed: Yes Past Medical History: - - Reviewed in problem list Lives: Spouse/ Significant Other Smoking Status: Never smoker Alcohol: None Drugs: None Review of Systems General: Denies: Chills, Fever, Sweats Eyes: Denies: Visual changes - bilaterally, Diplopia ENT: Reports: Sore throat. Denies: Rhinorrhea Cardiovascular: Denies: Chest pain, Palpitations Respiratory: Denies: Dyspnea, Cough, Dyspnea on exertion Gastrointestinal: Denies: Abdominal pain, Nausea, Vomiting, Diarrhea, Melena, Hematochezia Genitourinary: Denies: Dysuria, Hematuria, Frequency Musculoskeletal: Denies: Back pain, Extremity Pain Skin: Denies: Rash, Wounds Neurological: Denies: Headache, Weakness, Numbness Psych: Denies: Depression, Anxiety, Suicidal thoughts, Suicidal ideations, -, - Physical Exam Vital Signs/Narrative: Vital Signs Temp Pulse Resp BP Pulse Ox 07/08/20 12:29 97.7 F L 90 16 101/96 H 96 Inital Vital Signs reviewed: Yes General: Well nourished, No Acute Distress Head: Normocephalic, Atraumatic Eyes: Perrl, EOMI ENT: Moist mucous membranes, - - There is some mild posterior oropharyngeal erythema. Status post tonsillectomy with some healing tissue in this area. There is no active bleeding. Tongue is not swollen. No sublingual edema. Oropharynx is patent without stridor. Skin: Normal color, No rash. Negative for: Cyanosis, Diaphoresis Neurological: Alert, Oriented x3, Cranial nerves II-XII grossly intact Psychological: Normal affect, Normal Mood Diagnostic/Tx/Re-eval Laboratory Data 07/08/20 07/08/20 12:55 12:55 WBC 9.6 RBC 4.90 Hgb 14.2 Hct 42.1 MCV 85.9 MCH 29.0 MCHC 33.7 RDW Std Deviation 36.1 RDW Coeff of Nathan 11.4 L Plt Count 201 MPV 10.3 Immature Gran % (Auto) 0.200 Neut % (Auto) 79.8 H Lymph % (Auto) 12.7 L Wallace % (Auto) 6.5 Eos % (Auto) 0.4 Baso % (Auto) 0.4 Absolute Neuts (auto) 7.7 Absolute Lymphs (auto) 1.22 Nucleated RBC % 0 Sodium 132 L Potassium 3.3 L Chloride 96 L Carbon Dioxide 24.0 Anion Gap 12 BUN 16 Creatinine 0.74 Estim Creat Clear Calc 78.23 Est GFR (MDRD) Af Amer 122 Est GFR (MDRD) Non-Af 101 BUN/Creatinine Ratio 21.6 H Glucose 71 L Calcium 9.2 - Medical Decision Making 24-year-old female presenting with sore throat, nausea and vomiting. She states she has not been tolerating her oral Percocet very well. She states that both makes her nauseous and hurts her throat to swallow. She also says it makes her very sleepy. Patient given morphine and Zofran on arrival. She is given a liter of IV fluids. Patient's lab work shows no leukocytosis normal hemoglobin and normal platelets. Her BMP shows that she has a slightly low potassium at 3.3 and she is slightly dehydrated. Since patient was given IV fluids I feel this is sufficient. Patient did not get potassium in the ER due to her nausea but is counseled on high potassium foods when she can eat. She was given a prescription for oxycodone as well as Zofran for home. Patient amenable with this plan and she stable discharge. Impression: 1. Postoperative pain 2. Nausea/vomiting ED Disposition - Plan for ED Patient: Disposition: Home or Assisted Living Instructions: ED Post Op Wound Check, Pain Prescriptions: Hydrocodone/Acetaminophen [Lortab 10 mg-300 mg/15 ml Elxr] 7.5 ml PO Q6H PRN PRN 3 Days #90 ml PRN Reason: Pain Prescription Printed Ondansetron [Ondansetron Odt] 4 mg PO Q8H PRN PRN #14 tab.rapdis PRN Reason: Nausea Prescription Printed Referrals: Yoni Le MD [Primary Care Provider] -
[2020-07-08] MEDS: 0.9% Normal Saline 1,000 ML 1000 ML IV (12:51)
[2020-07-08] MEDS: Ondansetron 4 MG/2 ML Vial IV (12:52)
[2020-07-08] MEDS: Morphine 4 MG/ML Syringe IV (12:52)
[2020-07-08 13:05] LABS: Absolute Lymphocyte Count 1.22 X10^3/uL (0.83-4.51); Absolute Neutrophil Count 7.7 X10^3/uL (2.0-7.7); Basophil# 0.04 X10^3/uL; Basophil% 0.4 % (0-1); Eosinophil# 0.04 X10^3/uL; Eosinophils% 0.4 % (0-5); Hematocrit 42.1 % (37-47); Hemoglobin 14.2 g/dL (12.0-15.0); Lymphocyte # 1.22 X10^3/ul (4.0); Lymphocyte % 12.7 % (19-41); Mean Corp Hgb Conc 33.7 g/dL (32-36); Mean Corpuscular Volume 85.9 fL (81-99); Mean Platelet Vol. 10.3 fl (6.2-12.0); Monocyte# 0.63 X10^3/uL; Monocyte% 6.5 % (0-10); NRBC Flagged by Analyzer 0 % (0-5); Neutrophil # 7.67 X10^3/uL (2.7-7.7); Neutrophil % 79.8 % (47-70); Platelet Count 201 K/mm3 (150-450); RBC Distribution Width CV 11.4 % (11.6-14.6); RBC Distribution Width SD 36.1 fl (35.1-43.9); White Blood Count 9.6 K/mm3 (4.4-11.0)
[2020-07-08 13:18] LABS: Anion Gap 12 (5-15); BUN 16 mg/dL (7-18); BUN/Creat Ratio 21.6 RATIO (10-20); Calcium,Total 9.2 mg/dL (8.5-10.1); Chloride 96 mmol/L (98-107); Creatinine, Serum 0.74 mg/dL (0.55-1.02); EST Glomerular Filtration Rate 101 mL/min (>60); Est Glom Filt Rate - Afr Amer 122 mL/min (>60); Estimated Creatinine Clearance 78.23 ml/min; Glucose 71 mg/dL (74-106); Potassium 3.3 mmol/L (3.5-5.1); Sodium Level 132 mmol/L (136-145)
[2020-07-08 13:48] VITALS: BP 114/68; PULSE 85; RESP 16; O2SAT 97
== END 2020-07-08 13:48 | disposition home or self-care (01) ==
LOC: ED 13:02
PROVIDERS: Emergency Provider Student in an Organized Health Care Education/Training Program; PCP Family Medicine
DX: G89.18 Other acute postprocedural pain (principal); R11.2 Nausea with vomiting, unspecified; E86.0 Dehydration; R13.10 Dysphagia, unspecified; J02.9 Acute pharyngitis, unspecified; Z98.890 Other specified postprocedural states
CPT/HCPCS: 80048; 85025; 96361; 96374; 96375; 99284; J7030; J2405

== ENCOUNTER 2021-09-11 16:53 | Emergency (ER) | payer MEDICAID, SELFPAY ==
[2021-09-11 16:55] VITALS: BP 109/72; PULSE 91; RESP 16; TEMP 36.9; O2SAT 100; BMI 19.1
--- NOTE | 2021-09-11 17:44 | ED.RN ---
pt is refusing to fill workers compJoseline herron rn [phone]
--- NOTE | 2021-09-11 17:56 | EDS_ITS ---
HPI History of Present Illness Chief Complaint: Dizziness Narrative Narrative: 25-year-old female presenting with dizziness which started today of a couple of hours ago. She states that its not necessarily vertiginous in nature. She does express that she has had some nausea without vomiting. She was initially concerned that she might be dehydrated because she has been on house today but has not specifically been doing any work outside. She states he had multiple bottles of water today and is making urine. She has not had fever or chills. No dysuria or hematuria. No diarrhea or constipation. [facility] Medical History Anxiety Chronic neck and back pain Depression Gave to child recently Home Medications ondansetron 4 mg disintegrating tablet 4 mg PO Q8H PRN PRN Nausea ##14 07/08/20 [Rx Last Taken Unknown] meclizine 25 mg tablet 25 mg PO TID PRN dizziness #30 tabs 09/11/21 [Rx Last Taken Unknown] promethazine 25 mg tablet 25 mg PO TID PRN nausea and vomiting #30 tabs 09/11/21 [Rx Last Taken Unknown] Allergy/AdvReac Type Severity Reaction Status Date / Time metronidazole [From Flagyl] Allergy Vomiting Verified 09/11/21 16:54 Family History Sister Diabetes Surgical History History of appendectomy Social History Smoking Status: Never smoker alcohol intake: never ROS ROS ED Constitutional Constitutional ED: Denies chills or fever(s) Eyes Eyes: Denies change in vision or diplopia ENT ENT ED: Denies rhinorrhea or sore throat Cardiovascular Cardiovascular: Denies chest pain or palpitations Respiratory/Chest Respiratory/Chest: Denies cough or dyspnea Gastrointestinal Gastrointestinal: Reports nausea; Denies abdominal pain Genitourinary Genitourinary ED: Denies dysuria or hematuria Musculoskeletal Musculoskeletal: Denies arthralgias or back pain Integumentary Denies abscess Neurologic Neurologic: Denies headache(s) Psychiatric Psychiatric: Denies anxiety or depression EXAM Physical Exam Const Vital Signs: 09/11/21 16:55 09/11/21 17:11 Temperature 98.4 F Temperature Source Temporal Pulse Rate 91 Respiratory Rate 16 Respiratory Effort Normal Respiratory Pattern Normal Blood Pressure 109/72 Blood Pressure Mean 84 Pulse Ox 100 Oxygen Delivery Method Room Air Positive well nourished General Appearance ED: NAD; Negative for pallor HEENT Reports TM's clear and moist mucous membranes HEENT Narrative: Reproducible vertiginous dizziness on Miladis-Hallpike exam. Nystagmus noted on exam Tympanic Membrane ED: Yes TM's clear Eyes PERRL General Eye ED: Negative for pale conjunctiva or scleral icterus Chest Wall inspection of chest normal Resp normal respiratory effort and clear to auscultation bilaterally Cardio regular rate and regular rhythm GI normal to inspection, nondistended, normoactive bowel sounds Neuro oriented x3 and CN's II-XII intact bilaterally Sensorium / Orientation: alert and orientation impaired Psych mental status grossly normal Skin no rashes or lesions noted General Skin Exam: Negative for jaundice or pallor MDM MDM MDM Narrative Medical decision making narrative: Patient was given meclizine and Phenergan and on reevaluation her dizziness had resolved. She states she is hungry and she is currently playing on her phone. I feel this point she is safe for discharge. She can prescription for meclizine for home. Patient is to follow-up with her PCP or ENT for follow-up. Return precaution discussed. Impression: 1. Benign positional Discharge Plan Triage Chief Complaint: Dizziness ED Provider: Saul Nguyễn Dx/Rx/DC Orders Instructions: ED BPV Vertigo Prescriptions: New meclizine 25 mg tablet 25 mg PO TID PRN (Reason: dizziness) Qty: 30 0RF promethazine 25 mg tablet 25 mg PO TID PRN (Reason: nausea and vomiting) Qty: 30 0RF No Action ondansetron 4 MG tablet,disintegrating 4 mg PO Q8H PRN PRN (Reason: Nausea) Qty: 14 0RF Primary Care Provider: Yoni Le Referrals: Yoni Le MD [Primary Care Provider] - Maury Davenport MD [STAFF PHYSICIAN] - As soon as possible Disposition Disposition: Home, Self Care
[2021-09-11] MEDS: Meclizine HCl 25 MG Tablet PO (18:27)
[2021-09-11] MEDS: proMETHazine 25 MG/ML Syringe 12.5 MG IM (18:28)
[2021-09-11 19:33] VITALS: BP 112/70; PULSE 67; RESP 14; O2SAT 99
== END 2021-09-11 19:34 | disposition home or self-care (01) ==
PROVIDERS: Emergency Provider Student in an Organized Health Care Education/Training Program; PCP Family Medicine; Visit Provider Student in an Organized Health Care Education/Training Program
DX: H81.10 Benign paroxysmal vertigo, unspecified ear (principal); F32.A Depression, unspecified; F41.9 Anxiety disorder, unspecified; Z79.899 Other long term (current) drug therapy
CPT/HCPCS: 99283